=== PATIENT | female | born 1960 | race Caucasian/White ===

== ENCOUNTER 2017-01-30 21:36 | Inpatient (IN) | payer OTHER ==
--- NOTE | ~2017-01-30 | HP ---
Unit #: [id number] #: [id number] Patient: REKHA BROWNE [id number] [place] [address] [id number] MR#: [id number] NAME: REKHA BROWNE ROOM: P254 Age: 57 Sex: F Admission Date: 01/30/2017 : 1960 Attending Physician: Michael Singh M.D. Admitting Physician: Michael Singh M.D. Primary Care Physician: Benitez Mondragon M.D. HISTORY AND PHYSICAL HISTORY OF PRESENT ILLNESS Patient is a 57-year-old female admitted to [address] [place] [address] on 01/30/2017 for suicidal ideations with a plan to overdose. PAST MEDICAL HISTORY 1. GERD. 2. Hyperlipidemia. 3. Hernia. PAST SURGICAL HISTORY 1. Cholecystectomy. 2. Carpal tunnel x2. 3. x2. 4. Bilateral tubal ligation. 5. Left breast lumpectomy. ALLERGIES Tramadol. SOCIAL HISTORY Patient is on leave of absence from work. She currently lives with her . She denies alcohol, tobacco and drug use. FAMILY HISTORY Noncontributory. REVIEW OF SYSTEMS CONSTITUTIONAL: No fever or chills. HEENT: Denies any sore throat, ear pain or runny nose. CARDIOVASCULAR: Denies chest pain, irregular heart rhythm or palpitations. CHEST: Denies shortness of breath or cough. No hemoptysis. GASTROINTESTINAL: Denies nausea, vomiting, diarrhea or chronic constipation. ENDOCRINE: Denies history of increased thirst or urination. No recent significant weight loss or gain. GENITOURINARY: Denies dysuria, frequency, or hematuria. SKIN: Denies any rashes. HEMATOLOGIC: Denies history of increased bleeding or bruising. MUSCULOSKELETAL: Denies any hot, swollen joints. No generalized muscle pain. NEUROLOGIC: Denies problems with vision or speech. No frequent, severe headaches. No numbness, tingling or weakness in any extremities. Denies loss of bladder or bowel control. Unit #: [id number] #: [id number] Patient: REKHA BROWNE CURRENT MEDICATIONS 1. Robaxin. 2. Naproxen. 3. Viibryd. 4. Aspirin. PHYSICAL EXAMINATION GENERAL: She is awake, alert, oriented, in no acute distress. VITAL SIGNS: Temperature 98.1, heart rate 79, respirations 17, blood pressure 167/87. HEIGHT: 5 feet 1. WEIGHT: 219 pounds. SKIN: Warm and dry without rash or lesion. HEENT: Normocephalic. TMs not viewed. Oral and nasal passages clear. Conjunctivae clear. PERRLA. EOMs intact. NECK: Supple without lymphadenopathy or thyromegaly. HEART: Regular rate and rhythm without murmur. LUNGS: Clear. ABDOMEN: Soft, nontender. : Not done. EXTREMITIES: No evidence of cyanosis, clubbing or edema. Moves all without focal deficit. NEUROLOGICAL: Grossly within normal limits. Cranial Nerves: II: Visual hatch are intact. III, IV AND : Extraocular movements are intact. Pupils are equal, round and reactive to light. V: Facial sensation is grossly normal. VII: Facial movements and expression are normal. VIII: Auditory acuity grossly intact. IX, X: Uvula is midline. Phonation is normal. XI: Patient shrugs shoulders and turns head normally. XII: Tongue protrudes in the midline. Sensory and Motor Function: Sensory and motor sensation is grossly normal. Motor: moves all extremities well. Coordination: Gait is normal. Deep Tendon Reflexes: Intact. IMPRESSION 1. Psychiatric admission. 2. Gastroesophageal reflux disease. 3. Hyperlipidemia. 4. Hernia. RECOMMENDATIONS PSYCHIATRIC: Per psychiatrist. MEDICAL: No contraindications to participate in facility's activities. MEDICAL PROGNOSIS Good. MEDICAL CONDITION Stable. Dictated by... Argelia Gonzalez A.P.R.N. Unit #: [id number] #: [id number] Patient: REKHA BROWNE BETTE/lea TD: 01/31/2017 16:50 JOB #: [id number] HISTORY AND PHYSICAL Page 1 of 1 X ARGELIA GONZALEZ APRN HISTORY AND PHYSICAL
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
--- NOTE | ~2017-01-30 | DS ---
Unit #: [id number] #: [id number] Patient: REKHA BROWNE [id number] [facility] [address] [place] [address] [id number] I MR#: [id number] NAME: REKHA BROWNE [facility]OM: [facility] Age: 57 Sex: F Admission Date: 01/30/2017 : 1960 Discharge Date: 02/01/2017 Attending Physician: Michael Singh M.D. Primary Care Physician: Benitez Mondragon M.D. DISCHARGE SUMMARY REASON FOR ADMISSION Depression. DIAGNOSTIC STUDIES LABORATORY RESULTS: None. HOSPITAL COURSE The patient was admitted to partial program on 01/30/2017 and discharged on 02/01/2017. The patient was treated with medication management and structured milieu, responded well with the above modalities of treatment. Subsequently, the patient was discharged with a plan to follow up in outpatient program. DISCHARGE MEDICATIONS Robaxin 750 mg q.i.d. for muscle spasm, naproxen 500 mg b.i.d. for pain, aspirin 81 mg daily, supplement, and Viibryd 10 mg daily for depression. The patient has all medications at home. No prescription given. DISCHARGE DIAGNOSES Psychiatric: 1. Major depressive disorder, recurrent, severe, F33.2. 2. Anxiety disorder, not otherwise specified, F40.01. Secondary diagnosis: Deferred. Medical diagnosis: Please refer to H and P. Stressors: Psychosocial stressors. DISCHARGE INSTRUCTIONS The patient is to follow up in outpatient clinic as per older adult social work specialist. CONDITION ON DISCHARGE The patient was pleasant and cooperative. Denied any psychotic symptom or any suicidal ideation. PROGNOSIS Guarded. DIET AND ACTIVITY As tolerated. Dictated by... Unit #: [id number] #: [id number] Patient: REKHA BROWNE Sharon ClarkC/derickl TD: 02/05/2017 23:15 JOB #: [id number] DISCHARGE SUMMARY Page 1 of 1 X Michael Singh MD X DISCHARGE SUMMARY
--- NOTE | ~2017-01-30 | PN ---
Unit #: [id number] #: [id number] Patient: JESSIE BROWNE [id number] [facility] [address] [place] [address] [id number] I MR#: [id number] NAME: JESSIE BROWNE ROOM: P254 Age: 57 Sex: F Admission Date: 01/30/2017 : 1960 Attending Physician: Michael Singh M.D. Admitting Physician: Michael Singh M.D. Primary Care Physician: Sharon Enciso PROGRESS NOTES DATE 01/31/2017 DISCUSSION Ms. Jessie Browne is a 57-year-old female seen on 01/31/2017. Patient interviewed, chart reviewed, obtained information from nursing staff. Patient compliant, cooperative. Mood sad/dysphoric, flat affect, guarded, still having problems with the anxiety, depression, mood lability. Patient denied any thoughts of harming self or others. Patient still has feelings of hopelessness, worthlessness. Vital signs stable: 97.7, 77, 18, 160/79. Complete review of systems unremarkable. MENTAL STATUS EXAMINATION General appearance: Patient dressed casually. Attention span and concentration fair. Oriented in place and person. Mood and affect sad/dysphoric. Speech monotone. Thought processes: [place]. Patient reported having positive suicidal ideation; denied any psychotic symptoms. Recent and remove memory poor. Insight and judgment poor. DIAGNOSIS 1. Major depressive disorder, recurrent, F33.2 2. Anxiety disorder, NOS, F40.01 ASSESSMENT/PLAN Continue with current medication and therapy protocol. We will make a change in medication if needed. Continue with the inpatient programming. Dictated by... Sharon Clark/yahaira TD: 02/01/2017 13:07 JOB #: [id number] Unit #: [id number] #: [id number] Patient: JESSIE BROWNE PROGRESS NOTES Page 1 of 1 X Michael Singh MD PROGRESS NOTE
[~2017-01-30 21:36] MED LIST: ACETAMINOPHEN PO; ASPIRIN81 M2 PO; ASPIRIN81 MG PO; BENTYL10 M1 PO; BLACK COHOSH PO; BUSPAR15 M1 PO; CALCIUM + VITA1 EACH PO; CELEBREX PO; CRANBERRY CONC1 EACH PO; CRANBERRY PO; D-3 PO; EFFEXOR75 M1 PO; EFFEXOR75 MG PO; FOLIC ACID1 MG PO; MEDROXYPROGESTERONE; NIACIN50 MG PO; OMEPRAZOLE20 M2 PO; PAXIL PO; PERCOCET5/325 PO; PHENERGAN25 M1 PO; POTASSIUM99 M1 PO; PROTONIX PO; VITAMIN B; VITAMIN D35000 UNIT PO; ZANTAC PO; ZOFRAN PO; [UNRECOGNIZED DRUG - OTHER]; [UNRECOGNIZED DRUG - OTHER]; [UNRECOGNIZED DRUG - OTHER] PO
[2017-01-31 10:46] LABS: BASOPHIL% 0.5 % (0-2.5); EOSINOPHIL# 0.1 X10e3 (0-0.7); EOSINOPHIL% 1.9 % (0.0-7.0); HEMATOCRIT 48.4 % (35.0-45.0); HEMOGLOBIN 15.7 gm/dL (12.0-16.0); LYMPHOCYTE# 2.2 X10e3 (1.0-3.5); LYMPHOCYTE% 33.8 % (17.0-45.0); MEAN CELL VOLUME 91.6 FL (83-96); MEAN CORPUSCULAR HEMOGLOBIN 29.7 PG (28-34); MEAN CORPUSCULAR HGB CONC 32.4 g/dL (30-36); MEAN PLATELET VOLUME 7.4 FL (6.5-11.5); MONOCYTE# 0.6 X10e3 (0-1.0); MONOCYTE% 9.3 % (3.0-12.0); NEUTROPHIL# 3.6 X10e3 (1.5-7.1); NEUTROPHIL% 54.5 % (40-75); PLATELET COUNT 408 X10e3 (140-420); RED BLOOD COUNT 5.28 X10e (3.90-5.30); RED CELL DISTRIBUTION WIDTH 13.7 % (11.0-15.5); WHITE BLOOD COUNT 6.6 X10e3 (4.0-10.5)
[2017-01-31 10:47] LABS: DIFF IND NO
[2017-01-31 11:28] LABS: URINE APPEARANCE CLEAR; URINE BILIRUBIN NEG (NEG); URINE BLOOD NEG (NEG); URINE COLOR YELLOW; URINE GLUCOSE NEG (NEG); URINE KETONE NEG (NEG); URINE LEUKOCYTE ESTERASE NEG (NEG); URINE NITRATE NEG (NEG); URINE PROTEIN NEG (NEG); URINE SPECIFIC GRAVITY 1.019 (1.003-1.035); URINE UROBILINOGEN 0.2 MG/DL (NEG)
[2017-01-31 11:50] LABS: THYROID STIMULATING HORMONE 2.48 uIU/ml (0.34-5.60)
[2017-01-31 11:54] LABS: ALBUMIN SERUM 4.2 g/dL (3.5-5.0); BILIRUBIN,TOTAL 0.8 mg/dL (0.2-2.0); BUN/CREATININE RATIO 28.57; CALCIUM SERUM 9.8 mg/dL (8.4-10.2); CREATININE SERUM 0.7 mg/dL (0.6-1.4); GLOM FILT RATE Estimated 94.8 mL/min (>60); POTASSIUM 4.9 mmol/L (3.5-5.1); PROTEIN TOTAL SERUM 7.1 g/dL (6.0-8.3)
[2017-01-31 11:57] LABS: FREE THYROXIN (T4) 0.94 ng/dL (0.58-1.64)
[2017-01-31 12:02] LABS: AMPHETAMINE NEG (NEG); BARBITURATES NEG (NEG); BENZODIAZEPINES NEG (NEG); COCAINE NEG (NEG); MARIJUANA NEG (NEG); OPIATES NEG (NEG); TRICYCLIC ANTIDEPRESSANTS NEG (NEG); U METHADONE NEG (NEG)
== END 2017-02-01 17:05 | disposition home or self-care (01) | DRG 885 ==
LOC: P2L 21:36
PROVIDERS: Psychiatry & Neurology Psychiatry
DX: F33.1 Major depressive disorder, recurrent, moderate (principal); I10 Essential (primary) hypertension; F41.9 Anxiety disorder, unspecified; K21.9 Gastro-esophageal reflux disease without esophagitis; E78.5 Hyperlipidemia, unspecified
CPT/HCPCS: 80053; 80307; 81003; 84439; 84443; 85025

== ENCOUNTER → 2017-04-28 | Outpatient (CLI) | payer OTHER ==
--- NOTE | ~2017-04-28 | TH ---
Unit #: [id number] #: [id number] Patient: REKHA BROWNE [id number] [address] [address] [id number] O MR#: [id number] NAME: REKHA BROWNE : 1960 SEX: F STUDY DATE/TIME: UNIT: [facility] ROOM: STUDY DESCRIPTION: Nuclear Study/EKG Stress Attending Physician: Bobby Cr M.D. Referring Physician: Bobby Cr M.D. Primary Care Physician: Benitez Mondragon M.D. CARDIOLOGY REPORT EXAM Combined Nuclear Study/EKG Portion DESCRIPTION Patient's baseline heart rate is 67 beats/minute, blood pressure is 157/76. The patient received Lexiscan infusion as per protocol. At peak infusion, heart rate was 96 beats/minute, blood pressure 159/89. Patient's baseline EKG showing normal sinus rhythm, normal EKG. During Lexiscan infusion recovery, no further ST and T changes. The patient also received 11.71 mCi of Cardiolite at rest and 32.0 mCi of Cardiolite during stress. Both sets of images were compared. Patient shows fairly uniform uptake of radiotracer. No defect was noted. Patient also had gated SPECT scan done which showed normal LV size and function. No wall motion abnormality detected. Ejection fraction is 75%. INTERPRETATION OF TEST 1. EKG part of the test is negative for Lexiscan-induced ischemia. 2. Nuclear part of the test for myocardial ischemia. 3. Gated SPECT scan shows normal LV size and function. Dictated by... Sharon Gutierrez/kassi TD: 04/29/2017 09:29 JOB #: [id number] CARDIOLOGY REPORT Page 1 of 1 X Mario Hanson MD CARDIOLOGY REPORT
--- NOTE | ~2017-04-28 | ST ---
Unit #: [id number] #: [id number] Patient: REKHA BROWNE [id number] [address] [address] [id number] O MR#: [id number] NAME: REKHA BROWNE : 1960 SEX: F STUDY DATE/TIME: UNIT: [facility] ROOM: STUDY DESCRIPTION: Stress Test Attending Physician: Bobby Cr M.D. Referring Physician: Bobby Cr M.D. Primary Care Physician: Benitez Mondragon M.D. CARDIOLOGY REPORT EXAM EKG Portion of Stress Test RESULTS Please see Nuclear Study for results of EKG Portion of Stress Test. Dictated by... Sharon Gutierrez/kassi TD: 04/29/2017 09:34 JOB #: [id number] CARDIOLOGY REPORT Page 1 of 1 X Mario Hanson MD CARDIOLOGY REPORT
== END | disposition home or self-care (01) ==
LOC: CNUC 07:58
DX: R07.9 Chest pain, unspecified (principal); I51.7 Cardiomegaly; I51.89 Other ill-defined heart diseases; I37.1 Nonrheumatic pulmonary valve insufficiency
CPT/HCPCS: 78452; 93017; 93306; A9500; J2785